=== PATIENT | female | born 1960 | race Two or more races ===

== ENCOUNTER → 2021-02-26 | Outpatient (CLI) | payer OTHER | END | disposition home or self-care (01) | LOC: PPH VACUNA | DX: Z23 Encounter for immunization (principal) ==

== ENCOUNTER 2021-03-19 08:00 | Outpatient (CLI) | payer OTHER | END 2021-03-19 08:30 | disposition home or self-care (01) | LOC: PPH VACUNA 08:00 | DX: Z23 Encounter for immunization (principal) ==

== ENCOUNTER 2021-06-26 08:00 | Outpatient (CLI) | payer OTHER | END 2021-06-26 08:30 | disposition home or self-care (01) | LOC: PPH VACUNA 08:00 | PROVIDERS: ATTEND Emergency Medicine Pediatric Emergency Medicine | DX: Z23 Encounter for immunization (principal) ==

== ENCOUNTER 2021-09-18 08:00 | Outpatient (CLI) | payer OTHER | END 2021-09-18 08:30 | disposition home or self-care (01) | LOC: PPH VACUNA 08:00 | PROVIDERS: ATTEND Emergency Medicine Pediatric Emergency Medicine | DX: Z23 Encounter for immunization (principal) ==

== ENCOUNTER 2022-05-22 08:00 | Outpatient (CLI) | payer OTHER | END 2022-05-22 08:05 | disposition home or self-care (01) | LOC: PPH VACUNA 08:00 | PROVIDERS: ATTEND Emergency Medicine Pediatric Emergency Medicine | DX: Z23 Encounter for immunization (principal) ==

== ENCOUNTER → 2023-05-22 | Outpatient (CLI) | payer OTHER | END | disposition home or self-care (01) | LOC: PPH VACUNA | PROVIDERS: ATTEND Emergency Medicine Pediatric Emergency Medicine | DX: Z23 Encounter for immunization (principal) ==

== ENCOUNTER 2023-08-28 13:10 | Outpatient (CLI) | payer OTHER | END 2023-08-28 13:14 | disposition home or self-care (01) | LOC: NUCLEAR 13:10 | DX: Z13.820 Encounter for screening for osteoporosis (principal) ==